=== PATIENT | male | born 1950 | race Caucasian/White ===

== ENCOUNTER → 2016-10-27 | Outpatient (CLI) | payer BC ==
[2016-10-27 09:45] LABS: CALCIUM 8.3 mg/dL (8.5-10.1); CREATININE 1.3 mg/dL (0.7-1.3); GFR 54.9; MAGNESIUM 1.6 mg/dL (1.8-2.4); POTASSIUM 3.9 mmol/L (3.5-5.1)
== END | disposition home or self-care (01) ==
LOC: LAB 09:22
PROVIDERS: ATTEND Nurse Practitioner
DX: I48.1 Persistent atrial fibrillation (principal)
CPT/HCPCS: 36415; 80048; 83735

== ENCOUNTER → 2016-12-26 | Outpatient (CLI) | payer BC ==
[2016-12-26 11:40] LABS: CALCIUM 9.1 mg/dL (8.5-10.1); CREATININE 1.2 mg/dL (0.7-1.3); GFR 60.2; POTASSIUM 3.9 mmol/L (3.5-5.1)
== END | disposition home or self-care (01) ==
LOC: SPEC 11:24
PROVIDERS: ATTEND Internal Medicine Cardiovascular Disease
DX: I48.91 Unspecified atrial fibrillation (principal)
CPT/HCPCS: 36415; 80048

== ENCOUNTER → 2016-12-26 | Outpatient (CLI) | payer BC | END | disposition home or self-care (01) | LOC: LAB 09:32 | PROVIDERS: ATTEND Family Medicine | DX: Z12.5 Encounter for screening for malignant neoplasm of prostate (principal) | CPT/HCPCS: G0103 ==

== ENCOUNTER → 2016-12-30 | Outpatient (CLI) | payer BC | END | disposition home or self-care (01) | LOC: SURG 13:22 | PROVIDERS: ATTEND Anesthesiology Pain Medicine | DX: M47.816 Spondylosis without myelopathy or radiculopathy, lumbar region (principal); M51.37 Other intervertebral disc degeneration, lumbosacral region; M96.1 Postlaminectomy syndrome, not elsewhere classified; I25.10 Atherosclerotic heart disease of native coronary artery without angina pectoris; E11.8 Type 2 diabetes mellitus with unspecified complications; M19.90 Unspecified osteoarthritis, unspecified site; I48.91 Unspecified atrial fibrillation; J32.9 Chronic sinusitis, unspecified; G47.30 Sleep apnea, unspecified; K21.9 Gastro-esophageal reflux disease without esophagitis; E66.9 Obesity, unspecified; G57.93 Unspecified mononeuropathy of bilateral lower limbs | CPT/HCPCS: 82947; 99204 ==

== ENCOUNTER → 2017-02-09 | Outpatient (CLI) | payer BC ==
--- NOTE | 2017-02-09 16:06 | RAD ---
Right foot, 3 views, 02/09/2017: History: Osteoarthritis, hardware dictation No previous radiographs are available at this time for comparison purposes. There has been an extensive fusion of the ankle joint, hindfoot and midfoot. The bony bridging extends from the ankle joint and subtalar joint through the midfoot and tarsal-metatarsal articulations. A single surgical screw is in place extending from the proximal first metatarsal into the midfoot. 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 There is deformity of the distal fourth metatarsal which may also be postsurgical. There are degenerative changes at scattered MTP and interphalangeal joints. No acute fracture or destructive bony lesion is seen. IMPRESSION: Extensive postsurgical and degenerative changes as described above.
== END | disposition home or self-care (01) ==
LOC: RAD 12:08
PROVIDERS: ATTEND Podiatrist Foot & Ankle Surgery
DX: M19.071 Primary osteoarthritis, right ankle and foot (principal); Z98.890 Other specified postprocedural states
CPT/HCPCS: 73630

== ENCOUNTER → 2017-12-25 | Outpatient (CLI) | payer BC ==
--- NOTE | 2017-12-25 11:52 | RAD ---
Right foot, 3 views, 12/25/2017: HISTORY: Foot pain, diabetes Comparison is made to a study from 02/09/2017. Changes of a previous extensive surgical fusion are again noted involving the midfoot and hindfoot. All of the MTP joints and midfoot articulations are fused with a large surgical screw remaining in place. The hindfoot joints and tibiotalar articulation are also fused. 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 There is unchanged deformity of the fourth metatarsal head with degenerative change at the fourth MTP joint. There is moderate degenerative change at the MTP and IP joints of the great toe. These findings appear unchanged. No new fracture or destructive bony lesion is seen. IMPRESSION: 1. Extensive postsurgical and degenerative changes as described above. 2. No acute bony abnormality is detected. Electronically signed by: Johnnie Hatfield MD (12/25/2017 11:49 AM) [facility]
== END | disposition home or self-care (01) ==
LOC: DXRAD 10:53
PROVIDERS: ATTEND Family Medicine
DX: M19.071 Primary osteoarthritis, right ankle and foot (principal); M21.6X1 Other acquired deformities of right foot; E11.9 Type 2 diabetes mellitus without complications; Z98.890 Other specified postprocedural states
CPT/HCPCS: 73630